=== PATIENT | male | born 1960 | race Asian ===

== ENCOUNTER 2021-05-04 09:13 | Inpatient (IN) | payer MEDICAID, OTHER ==
[~2021-05-04] VITALS: Ht 170.2 cm; Wt 59.3 kg
[2021-05-04] MEDS ORDERED: SODIUM CHLORIDE 0.9% 100 ML ONE ×2 (09:42→16:56)
[2021-05-04] MEDS ORDERED: IOHEXOL 350 MG/ML 100 ML VIAL ONE (09:42)
[2021-05-04] MEDS ORDERED: MAG HYDROX/AL HYDROX/SIMETH 30 ML SUSP UDCUP PO ONE (09:45)
[2021-05-04] MEDS ORDERED: ONDANSETRON HCL 4 MG/2 ML VIAL IVP ONE (09:45)
[2021-05-04] MEDS ORDERED: FAMOTIDINE 10 MG/ML 2 ML VIAL IVP ONE (09:45)
[2021-05-04] MEDS ORDERED: ACETAMINOPHEN 500 MG TABLET PO ONE (09:45)
[2021-05-04 10:23] LABS: BASOPHILS % (AUTO) 0.2 % (0.0-2.0); EOSINOPHILS % (AUTO) 0.2 % (1.0-6.0); HEMATOCRIT 44.8 % (41-53); LYMPHOCYTES # (AUTO) 1.8 K/uL (1.0-4.8); LYMPHOCYTES % (AUTO) 31.4 % (22.0-44.0); MEAN CORPUSCULAR HEMOGLOBIN 30.5 pg (26.0-34.0); MEAN CORPUSCULAR HGB CONC 33.5 G/dL (31.0-37.0); MEAN CORPUSCULAR VOLUME 91 fL (80-100); MONOCYTES # (AUTO) 0.1 K/uL (0.1-1.0); MONOCYTES % (AUTO) 1.8 % (2.0-9.0); NEUTROPHILS # (AUTO) 3.7 K/uL (1.8-7.7); NEUTROPHILS % (AUTO) 66.4 % (40.0-70.0); PLATELET COUNT (AUTO) 312 K/uL (150-450); RED BLOOD CELL COUNT(AUTO) 4.92 MIL/uL (4.50-5.90); RED CELL DISTRIBUTION WIDTH 15.7 % (11.5-14.5)
[2021-05-04 10:34] LABS: CALCIUM, TOTAL 8.7 mg/dL (8.8-10.5); CREATININE 1.35 mg/dL (0.60-1.30); POTASSIUM 4.3 mmol/L (3.5-5.1)
[2021-05-04 10:38] LABS: ALBUMIN 3.1 g/dL (3.4-5.0); BILIRUBIN,TOTAL 0.5 mg/dL (0.1-1.0); TOTAL PROTEIN, SERUM 6.5 g/dL (6.4-8.2)
[2021-05-04 10:41] LABS: INR 0.9 (0.9-1.1); PROTHROMBIN TIME 9.8 SEC (9.4-11.6)
[2021-05-04 10:45] LABS: APPEARANCE,URINE CLEAR (CLEAR); BILIRUBIN,URINE NEGATIVE (NEGATIVE); GLUCOSE, URINE (UA) NEGATIVE (NEGATIVE); KETONES,URINE NEGATIVE (NEGATIVE); LEUKOCYTE ESTERASE ,URINE NEGATIVE (NEGATIVE); NITRATE,URINE NEGATIVE (NEGATIVE); OCCULT BLOOD,URINE NEGATIVE (NEGATIVE); PROTEIN,URINE POS 1+ (NEGATIVE)
[2021-05-04] MEDS ORDERED: PANTOPRAZOLE SODIUM 40 MG/VIAL IVP ONE (11:00)
[2021-05-04 11:05] LABS: BACTERIA,URINE None Seen /HPF (None Seen); RBC,URINE None Seen /HPF (0-2); SQUAMOUS EPITHELIAL CELL,UR None Seen /LPF (None Seen); WBC,URINE None Seen /HPF (0-5)
[2021-05-04] MEDS ORDERED: PANTOPRAZOLE SODIUM 80 MG in SODIUM CHLORIDE 0.9% 100 ML IV SCH ×2 (11:15→14:45)
[2021-05-04] MEDS ORDERED: GABA-1181 PO (12:59)
[2021-05-04] MEDS ORDERED: MELO-107 PO (12:59)
[2021-05-04] MEDS ORDERED: PIPERACILLIN SODIUM/TAZOBACTAM 4.5 GM in DEXTROSE 5%-WATER 100 ML IV ONE (13:00)
[2021-05-04] MEDS ORDERED: FLUCONAZOLE 400 MG/NACL ISOOSM 200 ML IV ONE (13:15)
[2021-05-04] MEDS ORDERED: BUPIVACAINE/EPI/PF 0.5% 30 ML VIAL ONE (13:23)
[2021-05-04] MEDS ORDERED: BUPIVACAINE 0.25%/EPI 1:200,000/PF 10 ML VIAL ONE (13:24)
[2021-05-04 13:27] LABS: COVID AG,FIA SOURCE NASAL SWAB
[2021-05-04] MEDS ORDERED: BUPIVACAINE HCL/PF 0.5% 30 ML VIAL ONE (13:37)
[2021-05-04] MEDS ORDERED: ONDANSETRON HCL 4 MG/2 ML VIAL IVP PRN ×2 (13:45→14:45)
[2021-05-04] MEDS ORDERED: 0.9% SODIUM CHLORIDE 10 ML SYRINGE IVP PRN (13:45)
[2021-05-04] MEDS ORDERED: BUPIVACAINE LIPOSOME/PF 1.3%-13.3MG/ML SUSPENSION 10 ML VIAL INJ ONE ×2 (13:45→14:00)
[2021-05-04] MEDS ORDERED: AMLO-257 PO (14:11)
[2021-05-04] MEDS ORDERED: ATOR20TA86 PO (14:11)
[2021-05-04] MEDS ORDERED: LOSA-30 PO (14:11)
[2021-05-04] MEDS ORDERED: ASPI-1450 PO (14:12)
[2021-05-04] MEDS ORDERED: ALBUMIN HUMAN 25%-12.5GM/50ML 50 ML ONE (14:17)
[2021-05-04] MEDS ORDERED: 0.9% SODIUM CHLORIDE 1000 ML IRRIG SOLUTION BAG IRRIG ONE (14:40)
[2021-05-04] MEDS ORDERED: BISACODYL 10 MG RECTAL RECTAL SUPPOSITORY PR PRN (14:45)
[2021-05-04] MEDS ORDERED: MAGNESIUM HYDROXIDE SUSPENSION 30 ML UDCUP PO PRN (14:45)
[2021-05-04] MEDS ORDERED: HydrALAZINE HCL 20 MG/ML VIAL IVP PRN (14:45)
[2021-05-04] MEDS ORDERED: BUPIVACAINE LIPOSOME/PF 1.3%-13.3MG/ML SUSPENSION 20 ML VIAL INJ ONE (14:45)
[2021-05-04] MEDS ORDERED: ZOLPIDEM TARTRATE 5 MG TABLET PO PRN (14:45)
[2021-05-04] MEDS ORDERED: BUPIVACAINE HCL/PF 0.5% 30 ML VIAL ID ONE (14:45)
[2021-05-04] MEDS ORDERED: SODIUM CHLORIDE 0.45% 0 ML IV ONE (14:50)
[2021-05-04] MEDS ORDERED: SODIUM CHLORIDE 0.9% 1,000 ML ONE (14:50)
[2021-05-04] MEDS ORDERED: PIPERACILLIN/TAZO 3.375 GM/D5W 50 ML IV SCH (15:00)
[2021-05-04] MEDS ORDERED: HYDROmorphone 2 MG/ML VIAL IVP PRN (15:15)
[2021-05-04] MEDS ORDERED: FentaNYL CITRATE PF 100 MCG/2 ML VIAL IVP PRN (15:15)
[2021-05-04] MEDS ORDERED: MEPERIDINE-PF 25 MG/ML VIAL IVP PRN (15:15)
[2021-05-04] MEDS: HEPARIN SODIUM,PORCINE 5,000 UNITS/ML VIAL SQ SCH (16:00)
[2021-05-04 20:00] VITALS: BP 151/78
[2021-05-04] MEDS: PIPERACILLIN/TAZO 3.375 GM/D5W 50 ML IV SCH (20:09)
[2021-05-04] MEDS: DOCUSATE SODIUM 100 MG CAPSULE PO SCH (20:10)
[2021-05-04] MEDS: PANTOPRAZOLE SODIUM 80 MG in SODIUM CHLORIDE 0.9% 100 ML IV SCH (21:22)
[2021-05-05] MEDS: FLUCONAZOLE 400 MG/NACL ISOOSM 200 ML IV SCH ×2 (00:17→13:53)
[2021-05-05] MEDS: HEPARIN SODIUM,PORCINE 5,000 UNITS/ML VIAL SQ SCH ×3 (00:17→17:45)
[2021-05-05 01:46] VITALS: BP 123/80
[2021-05-05] MEDS: PIPERACILLIN/TAZO 3.375 GM/D5W 50 ML IV SCH ×4 (02:56→20:53)
[2021-05-05 04:00] VITALS: BP 128/85
[2021-05-05] MEDS ORDERED: ROCURONIUM BROMIDE 10 MG/ML 5 ML VIAL IVP ONE (06:14)
[2021-05-05] MEDS ORDERED: PROPOFOL 1% 20 ML VIAL IVP ONE (06:14)
[2021-05-05] MEDS ORDERED: MORPHINE SULFATE/PF 0.5 MG/ML 10 ML AMP IVP ONE (06:14)
[2021-05-05] MEDS ORDERED: PHENYLEPHRINE HCL 10 MG/ML VIAL IVP ONE (06:14)
[2021-05-05] MEDS ORDERED: ONDANSETRON HCL 4 MG/2 ML VIAL IVP ONE (06:14)
[2021-05-05] MEDS ORDERED: 0.9% SODIUM CHLORIDE 10 ML VIAL IVP ONE (06:14)
[2021-05-05] MEDS ORDERED: FentaNYL CITRATE PF 100 MCG/2 ML VIAL IVP ONE (06:14)
[2021-05-05] MEDS ORDERED: LIDOCAINE/PF 2% 5 ML VIAL IM ONE (06:14)
[2021-05-05] MEDS ORDERED: DEXAMETHASONE SOD PHOS 4 MG/ML VIAL IVP ONE (06:14)
[2021-05-05] MEDS ORDERED: MIDAZOLAM HCL 2 MG/2 ML VIAL IVP ONE (06:14)
[2021-05-05] MEDS ORDERED: KETOROLAC TROMETHAMINE 60 MG/2 ML VIAL IM ONE (06:14)
[2021-05-05] MEDS ORDERED: SODIUM CHLORIDE 0.9% 0 ML ONE (06:54)
[2021-05-05 07:07] VITALS: BP 125/72
[2021-05-05] MEDS: MORPHINE SULFATE 2 MG/ML SYRINGE IVP PRN (08:27)
[2021-05-05] MEDS: PANTOPRAZOLE SODIUM 80 MG in SODIUM CHLORIDE 0.9% 100 ML IV SCH ×2 (08:30→19:00)
[2021-05-05 08:40] LABS: BASOPHILS % (AUTO) 0.1 % (0.0-2.0); EOSINOPHILS % (AUTO) 0.1 % (1.0-6.0); HEMATOCRIT 36.4 % (41-53); HEMOGLOBIN 12.4 g/dL (13.5-17.5); LYMPHOCYTES # (AUTO) 0.4 K/uL (1.0-4.8); LYMPHOCYTES % (AUTO) 4.3 % (22.0-44.0); MEAN CORPUSCULAR HEMOGLOBIN 30.9 pg (26.0-34.0); MEAN CORPUSCULAR VOLUME 91 fL (80-100); MONOCYTES # (AUTO) 0.1 K/uL (0.1-1.0); MONOCYTES % (AUTO) 1.4 % (2.0-9.0); NEUTROPHILS # (AUTO) 7.8 K/uL (1.8-7.7); PLATELET COUNT (AUTO) 240 K/uL (150-450); RED BLOOD CELL COUNT(AUTO) 4.01 MIL/uL (4.50-5.90); RED CELL DISTRIBUTION WIDTH 15.9 % (11.5-14.5)
[2021-05-05 08:41] LABS: NEUTROPHILS % (AUTO) 94.1 % (40.0-70.0)
[2021-05-05] MEDS: AmLODIPine BESYLATE 5 MG TABLET PO SCH (08:57)
[2021-05-05] MEDS: HYDROCHLOROTHIAZIDE 25 MG TABLET PO SCH (08:57)
[2021-05-05] MEDS: DOCUSATE SODIUM 100 MG CAPSULE PO SCH ×2 (08:57→20:52)
[2021-05-05] MEDS: ATORVASTATIN CALCIUM 20 MG TABLET PO SCH (08:57)
[2021-05-05] MEDS: ASPIRIN 81 MG CHEWABLE TABLET PO SCH (08:57)
[2021-05-05] MEDS: LOSARTAN POTASSIUM 50 MG TABLET PO SCH (08:57)
[2021-05-05] MEDS ORDERED: PANTOPRAZOLE SODIUM 40 MG DR TABLET PO SCH (09:00)
[2021-05-05 09:02] LABS: ALANINE AMINOTRANSFERASE 20 U/L (12-78); ALBUMIN 2.3 g/dL (3.4-5.0); ALKALINE PHOSPHATASE 47 U/L (46-116); ANION GAP 6 mmol/L (8-16); ASPARTATE AMINOTRANSFERASE 24 U/L (15-37); BILIRUBIN,TOTAL 0.5 mg/dL (0.1-1.0); CALCIUM, TOTAL 8.2 mg/dL (8.8-10.5); CARBON DIOXIDE 25 mmol/L (22-29); CHLORIDE 104 mmol/L (98-107); CREATININE 1.19 mg/dL (0.60-1.30); GLOMERULAR FILTR. RATE CALC > 60 mL/min (>60); GLUCOSE,RANDOM 125 mg/dL (70-110); POTASSIUM 4.1 mmol/L (3.5-5.1); SODIUM SERUM 135 mmol/L (136-145); TOTAL PROTEIN, SERUM 5.5 g/dL (6.4-8.2); UREA NITROGEN, BLOOD 37 mg/dL (7-18)
[2021-05-05 10:48] VITALS: BP 143/79
[2021-05-05] MEDS ORDERED: FLUT1AER8 IH (11:35)
[2021-05-05] MEDS ORDERED: UMEC62.5 IH (11:35)
[2021-05-05 14:30] VITALS: BP 123/61
[2021-05-05 20:00] VITALS: BP 124/70
[2021-05-06] VITALS (7 sets, daily range): BP systolic 108–138; BP diastolic 65–81
[2021-05-06] MEDS: HEPARIN SODIUM,PORCINE 5,000 UNITS/ML VIAL SQ SCH ×4 (01:06→23:49)
[2021-05-06] MEDS: FLUCONAZOLE 400 MG/NACL ISOOSM 200 ML IV SCH ×2 (01:07→13:42)
[2021-05-06] MEDS: PIPERACILLIN/TAZO 3.375 GM/D5W 50 ML IV SCH ×4 (02:40→20:27)
[2021-05-06] MEDS: MORPHINE SULFATE 2 MG/ML SYRINGE IVP PRN ×2 (04:48→11:06)
[2021-05-06] MEDS: PANTOPRAZOLE SODIUM 80 MG in SODIUM CHLORIDE 0.9% 100 ML IV SCH ×3 (06:30→23:44)
[2021-05-06] MEDS: AmLODIPine BESYLATE 5 MG TABLET PO SCH (08:23)
[2021-05-06] MEDS: LOSARTAN POTASSIUM 50 MG TABLET PO SCH (08:23)
[2021-05-06] MEDS: ATORVASTATIN CALCIUM 20 MG TABLET PO SCH (08:23)
[2021-05-06] MEDS: HYDROCHLOROTHIAZIDE 25 MG TABLET PO SCH (08:23)
[2021-05-06] MEDS: DOCUSATE SODIUM 100 MG CAPSULE PO SCH ×2 (08:24→20:28)
[2021-05-06] MEDS: ASPIRIN 81 MG CHEWABLE TABLET PO SCH (08:24)
[2021-05-06 08:48] LABS: HEMATOCRIT 34.5 % (41-53); HEMOGLOBIN 11.9 g/dL (13.5-17.5); MEAN CORPUSCULAR HGB CONC 34.6 G/dL (31.0-37.0); MEAN CORPUSCULAR VOLUME 90 fL (80-100); PLATELET COUNT (AUTO) 234 K/uL (150-450); RED BLOOD CELL COUNT(AUTO) 3.85 MIL/uL (4.50-5.90); RED CELL DISTRIBUTION WIDTH 15.7 % (11.5-14.5)
[2021-05-06 08:58] LABS: CALCIUM, TOTAL 8.6 mg/dL (8.8-10.5); CREATININE 1.22 mg/dL (0.60-1.30)
[2021-05-06 09:18] LABS: BAND NEUTROPHILS % (MANUAL) 25 % (0-5); LYMPHOCYTES % (MANUAL) 10 % (22-44); MONOCYTES % (MANUAL) 2 % (2-9); SEGMENTED NEUTROPHILS % 63 % (40-70)
[2021-05-06] MEDS: ACETAMINOPHEN 325 MG TABLET PO PRN (15:09)
[2021-05-06] MEDS: OXYGEN THERAPY IH SCH ×2 (20:34→20:36)
[2021-05-07] MEDS: FLUCONAZOLE 400 MG/NACL ISOOSM 200 ML IV SCH ×2 (00:38→13:17)
[2021-05-07] MEDS: PIPERACILLIN/TAZO 3.375 GM/D5W 50 ML IV SCH ×4 (02:43→19:39)
[2021-05-07 03:15] VITALS: BP 107/69
[2021-05-07] MEDS: ACETAMINOPHEN 325 MG TABLET PO PRN (03:18)
[2021-05-07 07:20] LABS: HEMATOCRIT 38.7 % (41-53); HEMOGLOBIN 13.3 g/dL (13.5-17.5); MEAN CORPUSCULAR HEMOGLOBIN 31.1 pg (26.0-34.0); MEAN CORPUSCULAR HGB CONC 34.4 G/dL (31.0-37.0); MEAN CORPUSCULAR VOLUME 91 fL (80-100); PLATELET COUNT (AUTO) 255 K/uL (150-450); RED BLOOD CELL COUNT(AUTO) 4.27 MIL/uL (4.50-5.90); RED CELL DISTRIBUTION WIDTH 15.5 % (11.5-14.5)
[2021-05-07 07:29] LABS: CALCIUM, TOTAL 8.5 mg/dL (8.8-10.5); CREATININE 1.28 mg/dL (0.60-1.30); POTASSIUM 3.9 mmol/L (3.5-5.1)
[2021-05-07 08:23] LABS: BAND NEUTROPHILS % (MANUAL) 20 % (0-5); LYMPHOCYTES % (MANUAL) 11 % (22-44); METAMYELOCYTES % 1 % (0-0); MONOCYTES % (MANUAL) 1 % (2-9); SEGMENTED NEUTROPHILS % 67 % (40-70)
[2021-05-07] MEDS: AmLODIPine BESYLATE 5 MG TABLET PO SCH (08:28)
[2021-05-07] MEDS: ASPIRIN 81 MG CHEWABLE TABLET PO SCH (08:28)
[2021-05-07] MEDS: HYDROCHLOROTHIAZIDE 25 MG TABLET PO SCH (08:28)
[2021-05-07] MEDS: ATORVASTATIN CALCIUM 20 MG TABLET PO SCH (08:29)
[2021-05-07] MEDS: LOSARTAN POTASSIUM 50 MG TABLET PO SCH (08:29)
[2021-05-07] MEDS: HEPARIN SODIUM,PORCINE 5,000 UNITS/ML VIAL SQ SCH ×2 (08:29→16:32)
[2021-05-07] MEDS: OXYGEN THERAPY IH SCH ×2 (08:33→19:38)
[2021-05-07] MEDS: DOCUSATE SODIUM 100 MG CAPSULE PO SCH ×2 (09:00→20:12)
[2021-05-07 09:32] VITALS: BP 125/72
[2021-05-07] MEDS: PANTOPRAZOLE SODIUM 80 MG in SODIUM CHLORIDE 0.9% 100 ML IV SCH ×2 (10:20→19:35)
[2021-05-07 13:29] VITALS: BP 128/80
[2021-05-07 15:06] LABS: GLUCOMETER DEV NAME(LOC) 5S.1B; GLUCOSE,POINT OF CARE 69 MG/DL (70-110)
[2021-05-07 19:05] VITALS: BP 95/75
[2021-05-07 23:16] VITALS: BP 101/79
[2021-05-08] MEDS: HEPARIN SODIUM,PORCINE 5,000 UNITS/ML VIAL SQ SCH ×3 (00:05→17:54)
[2021-05-08] MEDS: FLUCONAZOLE 400 MG/NACL ISOOSM 200 ML IV SCH ×2 (00:05→11:51)
[2021-05-08] MEDS: PIPERACILLIN/TAZO 3.375 GM/D5W 50 ML IV SCH ×4 (02:24→20:37)
[2021-05-08 04:48] VITALS: BP 110/67
[2021-05-08] MEDS: PANTOPRAZOLE SODIUM 80 MG in SODIUM CHLORIDE 0.9% 100 ML IV SCH ×2 (05:02→16:34)
[2021-05-08 08:58] VITALS: BP 113/72
[2021-05-08] MEDS: ATORVASTATIN CALCIUM 20 MG TABLET PO SCH (09:46)
[2021-05-08] MEDS: ASPIRIN 81 MG CHEWABLE TABLET PO SCH (09:46)
[2021-05-08] MEDS: AmLODIPine BESYLATE 5 MG TABLET PO SCH (09:46)
[2021-05-08] MEDS: HYDROCHLOROTHIAZIDE 25 MG TABLET PO SCH (09:46)
[2021-05-08] MEDS: LOSARTAN POTASSIUM 50 MG TABLET PO SCH (09:46)
[2021-05-08] MEDS: DOCUSATE SODIUM 100 MG CAPSULE PO SCH ×2 (09:46→20:36)
[2021-05-08] MEDS: OXYGEN THERAPY IH SCH ×2 (11:00→20:00)
[2021-05-08 12:27] VITALS: BP 110/78
[2021-05-08] MEDS ORDERED: LACTULOSE 20 GM/30 ML SOLUTION UDCUP PO PRN (17:00)
[2021-05-08 19:10] VITALS: BP 95/112
[2021-05-08] MEDS: HYDROCODONE/ACETAMINOPHEN 5-325 MG TABLET PO PRN (20:35)
[2021-05-09 00:22] VITALS: BP 118/65
[2021-05-09] MEDS: FLUCONAZOLE 400 MG/NACL ISOOSM 200 ML IV SCH ×2 (00:35→11:54)
[2021-05-09] MEDS: HEPARIN SODIUM,PORCINE 5,000 UNITS/ML VIAL SQ SCH ×3 (00:36→16:33)
[2021-05-09] MEDS: PANTOPRAZOLE SODIUM 80 MG in SODIUM CHLORIDE 0.9% 100 ML IV SCH ×3 (00:39→21:45)
[2021-05-09] MEDS: PIPERACILLIN/TAZO 3.375 GM/D5W 50 ML IV SCH ×5 (01:49→20:43)
[2021-05-09 04:00] VITALS: BP 114/71
[2021-05-09 06:17] LABS: BASOPHILS % (AUTO) 0.2 % (0.0-2.0); EOSINOPHILS % (AUTO) 0.5 % (1.0-6.0); HEMATOCRIT 37.2 % (41-53); HEMOGLOBIN 12.9 g/dL (13.5-17.5); LYMPHOCYTES # (AUTO) 0.8 K/uL (1.0-4.8); LYMPHOCYTES % (AUTO) 9.9 % (22.0-44.0); MEAN CORPUSCULAR HEMOGLOBIN 30.9 pg (26.0-34.0); MEAN CORPUSCULAR HGB CONC 34.8 G/dL (31.0-37.0); MEAN CORPUSCULAR VOLUME 89 fL (80-100); MONOCYTES # (AUTO) 0.2 K/uL (0.1-1.0); MONOCYTES % (AUTO) 2.9 % (2.0-9.0); NEUTROPHILS # (AUTO) 6.6 K/uL (1.8-7.7); PLATELET COUNT (AUTO) 333 K/uL (150-450); RED BLOOD CELL COUNT(AUTO) 4.18 MIL/uL (4.50-5.90); RED CELL DISTRIBUTION WIDTH 15.6 % (11.5-14.5)
[2021-05-09 06:20] LABS: NEUTROPHILS % (AUTO) 86.5 % (40.0-70.0)
[2021-05-09 06:24] LABS: ANION GAP 13 mmol/L (8-16); CALCIUM, TOTAL 8.4 mg/dL (8.8-10.5); CARBON DIOXIDE 23 mmol/L (22-29); CHLORIDE 95 mmol/L (98-107); CREATININE 1.03 mg/dL (0.60-1.30); GLOMERULAR FILTR. RATE CALC > 60 mL/min (>60); GLUCOSE,RANDOM 114 mg/dL (70-110); POTASSIUM 3.6 mmol/L (3.5-5.1); SODIUM SERUM 131 mmol/L (136-145); UREA NITROGEN, BLOOD 25 mg/dL (7-18)
[2021-05-09] MEDS: OXYGEN THERAPY IH SCH ×2 (08:00→20:05)
[2021-05-09 08:13] VITALS: BP_SYST 105; BP_SYST 129; BP_DIAS 65; BP_DIAS 69
[2021-05-09] MEDS: ACETAMINOPHEN 325 MG TABLET PO PRN (08:40)
[2021-05-09] MEDS: ASPIRIN 81 MG CHEWABLE TABLET PO SCH (08:41)
[2021-05-09] MEDS: LOSARTAN POTASSIUM 50 MG TABLET PO SCH (08:41)
[2021-05-09] MEDS: HYDROCHLOROTHIAZIDE 25 MG TABLET PO SCH (08:41)
[2021-05-09] MEDS: AmLODIPine BESYLATE 5 MG TABLET PO SCH (08:41)
[2021-05-09] MEDS: DOCUSATE SODIUM 100 MG CAPSULE PO SCH ×2 (08:41→20:43)
[2021-05-09] MEDS: ATORVASTATIN CALCIUM 20 MG TABLET PO SCH (08:45)
[2021-05-09 12:21] VITALS: BP 99/76
[2021-05-09] MEDS ORDERED: SODIUM CHLORIDE 0.9% 1,000 ML ONE (12:49)
[2021-05-09] MEDS ORDERED: SODIUM CHLORIDE 0.9% 1,000 ML IV SCH (14:30)
[2021-05-09] MEDS: SODIUM CHLORIDE 0.9% 1,000 ML IV SCH (14:54)
[2021-05-09 16:07] VITALS: BP 103/64
[2021-05-09 20:16] VITALS: BP 171/73
[2021-05-10] VITALS: BP 113/66
[2021-05-10] MEDS: HEPARIN SODIUM,PORCINE 5,000 UNITS/ML VIAL SQ SCH ×3 (00:18→17:13)
[2021-05-10] MEDS: FLUCONAZOLE 400 MG/NACL ISOOSM 200 ML IV SCH ×2 (00:18→11:39)
[2021-05-10 01:22] LABS: APPEARANCE,URINE CLEAR (CLEAR); BILIRUBIN,URINE NEGATIVE (NEGATIVE); GLUCOSE, URINE (UA) NEGATIVE (NEGATIVE); KETONES,URINE >=80 mg/dL (NEGATIVE); LEUKOCYTE ESTERASE ,URINE NEGATIVE (NEGATIVE); NITRATE,URINE NEGATIVE (NEGATIVE); OCCULT BLOOD,URINE SMALL (NEGATIVE); PROTEIN,URINE POS 1+ (NEGATIVE)
[2021-05-10] MEDS: PIPERACILLIN/TAZO 3.375 GM/D5W 50 ML IV SCH ×3 (01:38→15:59)
[2021-05-10 01:41] LABS: BACTERIA,URINE None Seen /HPF (None Seen); RBC,URINE 0-2 /HPF (0-2); WBC,URINE None Seen /HPF (0-5)
[2021-05-10] MEDS: SODIUM CHLORIDE 0.9% 1,000 ML IV SCH ×2 (04:00→16:21)
[2021-05-10 04:07] VITALS: BP 118/65
[2021-05-10] MEDS: HYDROCODONE/ACETAMINOPHEN 5-325 MG TABLET PO PRN ×3 (05:39→17:42)
[2021-05-10 07:15] LABS: ANION GAP 12 mmol/L (8-16); CALCIUM, TOTAL 8.2 mg/dL (8.8-10.5); CARBON DIOXIDE 22 mmol/L (22-29); CHLORIDE 97 mmol/L (98-107); CREATININE 1.02 mg/dL (0.60-1.30); GLOMERULAR FILTR. RATE CALC > 60 mL/min (>60); GLUCOSE,RANDOM 113 mg/dL (70-110); POTASSIUM 3.2 mmol/L (3.5-5.1); SODIUM SERUM 131 mmol/L (136-145); UREA NITROGEN, BLOOD 24 mg/dL (7-18)
[2021-05-10] MEDS: OXYGEN THERAPY IH SCH (08:00)
[2021-05-10 08:53] VITALS: BP 114/72
[2021-05-10] MEDS: ASPIRIN 81 MG CHEWABLE TABLET PO SCH (10:12)
[2021-05-10] MEDS: DOCUSATE SODIUM 100 MG CAPSULE PO SCH (10:12)
[2021-05-10] MEDS: LOSARTAN POTASSIUM 50 MG TABLET PO SCH (10:13)
[2021-05-10] MEDS: HYDROCHLOROTHIAZIDE 25 MG TABLET PO SCH (10:13)
[2021-05-10] MEDS: ATORVASTATIN CALCIUM 20 MG TABLET PO SCH (10:13)
[2021-05-10] MEDS: AmLODIPine BESYLATE 5 MG TABLET PO SCH (10:13)
[2021-05-10] MEDS: PANTOPRAZOLE SODIUM 80 MG in SODIUM CHLORIDE 0.9% 100 ML IV SCH ×2 (10:24→10:46)
[2021-05-10] MEDS ORDERED: AMOX1TAB15 PO (10:49)
[2021-05-10] MEDS ORDERED: DOCU100C33 PO (10:49)
[2021-05-10 12:59] VITALS: BP 118/71
[2021-05-10] MEDS ORDERED: POTASSIUM CHLORIDE 20 MEQ ER TABLET PO ONE ×2 (13:15→13:30)
[2021-05-10 17:24] VITALS: BP 124/70
[2021-05-11] MEDS ORDERED: PANT-31 PO (14:16)
== END 2021-05-10 18:00 | disposition home or self-care (01) | DRG 220 ==
LOC: EMS 09:18 → 5N 13:31
PROVIDERS: ADMIT Internal Medicine; ATTEND Internal Medicine
PROC: 0W9G0ZZ Drainage of Peritoneal Cavity, Open Approach (ICD-10-PCS; 2021-05-04)
PROC: 0DU607Z Supplement Stomach with Autologous Tissue Substitute, Open Approach (ICD-10-PCS; principal; 2021-05-04 14:00)
DX: K25.5 Chronic or unspecified gastric ulcer with perforation (principal); N17.9 Acute kidney failure, unspecified; I10 Essential (primary) hypertension; E78.5 Hyperlipidemia, unspecified; F17.210 Nicotine dependence, cigarettes, uncomplicated; Z20.822 Contact with and (suspected) exposure to COVID-19; Z79.899 Other long term (current) drug therapy; Z79.82 Long term (current) use of aspirin
CPT/HCPCS: 71045; 74018; 74177; 80048; 80053; 81001; 82271; 82962; 83690; 83880; 84484; 85025; 85610; 85730; 86850; 86900; 86901; 87040; 87070; 87081; 93005; 97116; 97163; 97530; 99291; C9113; C9290; J1100; J1450; J1644; J1885; J2250; J2270; J2274; J2370; J2405; J2543; J2704; J3010; J3490; J7030; J7050; J7060; P9047; Q9967; 36415-L1; 36415-TC; Z7610

== ENCOUNTER 2022-12-20 10:10 | Inpatient (IN) | payer OTHER ==
[~2022-12-20] VITALS: Ht 157.5 cm; Wt 63.0 kg
[~2022-12-20 10:10] MED LIST: AMLO-257 PO; AMOX1TAB15 PO; ASPI-1450 PO; ATOR20TA PO; DOCU100C33 PO; FLUT1AER8 IH; GABA-1181 PO; LOSA-30 PO; MELO-381 PO; PANT-31 PO; UMEC62.5 IH
[2022-12-20] MEDS ORDERED: MORPHINE SULFATE 2 MG/ML SYRINGE IVP ONE (11:00)
[2022-12-20] MEDS ORDERED: SODIUM CHLORIDE 0.9% 1,000 ML IV ONE ×2 (11:00→13:00)
[2022-12-20 11:13] LABS: BASOPHILS % (AUTO) 0.5 % (0.0-2.0); EOSINOPHILS % (AUTO) 0.7 % (1.0-6.0); HEMATOCRIT 29.7 % (41-53); HEMOGLOBIN 9.9 g/dL (13.5-17.5); LYMPHOCYTES # (AUTO) 1.5 K/uL (1.0-4.8); LYMPHOCYTES % (AUTO) 11.4 % (22.0-44.0); MEAN CORPUSCULAR HEMOGLOBIN 28.9 pg (26.0-34.0); MEAN CORPUSCULAR HGB CONC 33.2 G/dL (31.0-37.0); MEAN CORPUSCULAR VOLUME 87 fL (80-100); MONOCYTES # (AUTO) 0.7 K/uL (0.1-1.0); MONOCYTES % (AUTO) 5.6 % (2.0-9.0); NEUTROPHILS # (AUTO) 10.5 K/uL (1.8-7.7); NEUTROPHILS % (AUTO) 81.8 % (40.0-70.0); RED BLOOD CELL COUNT(AUTO) 3.42 MIL/uL (4.50-5.90); RED CELL DISTRIBUTION WIDTH 15.2 % (11.5-14.5); WHITE BLOOD COUNT (AUTO) 12.9 K/uL (4.5-11.0)
[2022-12-20 11:20] LABS: CALCIUM, TOTAL 9.2 mg/dL (8.8-10.5); CREATININE 2.19 mg/dL (0.60-1.30); POTASSIUM 3.6 mmol/L (3.5-5.1)
[2022-12-20 11:23] LABS: PLATELET COUNT (AUTO) 827 K/uL (150-450)
[2022-12-20 11:26] LABS: ALBUMIN 2.6 g/dL (3.4-5.0); BILIRUBIN,TOTAL 0.6 mg/dL (0.1-1.0); TOTAL PROTEIN, SERUM 8.5 g/dL (6.4-8.2)
[2022-12-20 11:28] LABS: TROPONIN I-HIGH SENSITIVITY 6 ng/L (<76)
[2022-12-20 11:58] LABS: APPEARANCE,URINE CLEAR (CLEAR); BILIRUBIN,URINE NEGATIVE (NEGATIVE); COLOR,URINE LIGHT YELLOW (YELLOW); GLUCOSE, URINE (UA) NEGATIVE (NEGATIVE); KETONES,URINE NEGATIVE (NEGATIVE); LEUKOCYTE ESTERASE ,URINE NEGATIVE (NEGATIVE); NITRATE,URINE NEGATIVE (NEGATIVE); OCCULT BLOOD,URINE NEGATIVE (NEGATIVE); PH,URINE 6.5 (5.0-8.0); PROTEIN,URINE NEGATIVE (NEGATIVE); SPECIFIC GRAVITIY, URINE 1.008 (1.003-1.030); UROBILINOGEN,URINE <=1.0 mg/dL (<=1.0)
[2022-12-20 13:31] LABS: COVID AG,FIA SOURCE NASAL SWAB
[2022-12-20 14:04] LABS: SARS-COV2 (COVID) ANTIGEN,FIA Negative (Negative)
[2022-12-20] MEDS ORDERED: ONDANSETRON HCL 4 MG/2 ML VIAL IVP PRN (18:45)
[2022-12-20 19:31] LABS: LACTIC ACID 1.3 mmol/L (0.4-2.0)
[2022-12-20] MEDS: DOCUSATE SODIUM 100 MG CAPSULE PO SCH (21:00)
[2022-12-20 21:45] VITALS: BP 127/69; PULSE 94; RESP 20; TEMP 98.2
[2022-12-21] VITALS (8 sets, daily range): BP systolic 97–110; BP diastolic 58–72; PULSE 70–93; RESP 18–20; TEMP 97.8–100.4
[2022-12-21] MEDS: ACETAMINOPHEN 325 MG TABLET PO PRN ×3 (00:19→16:58)
[2022-12-21] MEDS: PIPERACILLIN SODIUM/TAZOBACTAM 2.25 GM in DEXTROSE 5%-WATER 50 ML IV SCH ×4 (00:19→18:40)
[2022-12-21] MEDS: HEPARIN SODIUM,PORCINE 5,000 UNITS/ML VIAL SQ SCH ×3 (00:19→16:58)
[2022-12-21] MEDS: RINGERS SOLUTION,LACTATED 1,000 ML IV SCH ×2 (06:38→20:59)
[2022-12-21] MEDS: DOCUSATE SODIUM 100 MG CAPSULE PO SCH ×2 (08:32→20:59)
[2022-12-21] MEDS ORDERED: SODIUM CHLORIDE 0.9% 250 ML IV ONE (12:11)
[2022-12-21] MEDS ORDERED: OMEP40CA21 PO (18:26)
[2022-12-21] MEDS ORDERED: ASPI-1444 PO (18:26)
[2022-12-21] MEDS ORDERED: ATOR40TA71 PO (18:26)
[2022-12-21] MEDS ORDERED: FERR325T23 PO (18:26)
[2022-12-21] MEDS ORDERED: PLEC3TAB2 PO (18:26)
[2022-12-21] MEDS ORDERED: VIBE75TA PO (18:26)
[2022-12-21] MEDS ORDERED: AMLO10TA55 PO (18:26)
[2022-12-21] MEDS ORDERED: ACET-66 PO (18:26)
[2022-12-22] MEDS: PIPERACILLIN SODIUM/TAZOBACTAM 2.25 GM in DEXTROSE 5%-WATER 50 ML IV SCH ×2 (00:09→05:18)
[2022-12-22] MEDS: HEPARIN SODIUM,PORCINE 5,000 UNITS/ML VIAL SQ SCH ×3 (00:09→15:55)
[2022-12-22] MEDS: ACETAMINOPHEN 325 MG TABLET PO PRN (01:07)
[2022-12-22 04:45] VITALS: BP 114/66; PULSE 70; RESP 18; TEMP 98.6
[2022-12-22 07:11] LABS: BASOPHILS % (AUTO) 0.6 % (0.0-2.0); HEMATOCRIT 24.5 % (41-53); HEMOGLOBIN 8.3 g/dL (13.5-17.5); LYMPHOCYTES # (AUTO) 1.5 K/uL (1.0-4.8); LYMPHOCYTES % (AUTO) 13.6 % (22.0-44.0); MEAN CORPUSCULAR HEMOGLOBIN 29.5 pg (26.0-34.0); MEAN CORPUSCULAR HGB CONC 33.9 G/dL (31.0-37.0); MEAN CORPUSCULAR VOLUME 87 fL (80-100); MONOCYTES # (AUTO) 0.7 K/uL (0.1-1.0); MONOCYTES % (AUTO) 6.9 % (2.0-9.0); NEUTROPHILS # (AUTO) 8.2 K/uL (1.8-7.7); NEUTROPHILS % (AUTO) 76.9 % (40.0-70.0); PLATELET COUNT (AUTO) 679 K/uL (150-450); RED BLOOD CELL COUNT(AUTO) 2.82 MIL/uL (4.50-5.90); WHITE BLOOD COUNT (AUTO) 10.7 K/uL (4.5-11.0)
[2022-12-22 07:22] LABS: ALBUMIN 1.8 g/dL (3.4-5.0); BILIRUBIN,TOTAL 0.6 mg/dL (0.1-1.0); CALCIUM, TOTAL 8.4 mg/dL (8.8-10.5); CREATININE 1.35 mg/dL (0.60-1.30); POTASSIUM 4.1 mmol/L (3.5-5.1); TOTAL PROTEIN, SERUM 6.8 g/dL (6.4-8.2)
[2022-12-22] MEDS: DOCUSATE SODIUM 100 MG CAPSULE PO SCH ×2 (07:57→20:48)
[2022-12-22 08:00] VITALS: BP 102/61; PULSE 69; RESP 18; TEMP 97.8
[2022-12-22] MEDS: RINGERS SOLUTION,LACTATED 1,000 ML IV SCH ×2 (08:30→14:21)
[2022-12-22 10:42] LABS: INR 1.1 (0.9-1.1); PROTHROMBIN TIME 11.8 SEC (9.4-11.6)
[2022-12-22] MEDS: PIPERACILLIN/TAZO 3.375 GM/D5W 50 ML IV SCH ×3 (12:10→23:03)
[2022-12-22] MEDS ORDERED: LEVOFLOXACIN 750 MG/D5% WATER 150 ML IV SCH (16:00)
[2022-12-22] MEDS ORDERED: *CLINICAL-LEVOFLOXACIN IVPB DOSING CLINICAL ONE (16:00)
[2022-12-22 16:03] VITALS: BP 111/63; PULSE 71; RESP 18; TEMP 98.8
[2022-12-22 17:25] LABS: INFLUENZA TYPE A NEGATIVE FOR TYPE A (NEGATIVE); INFLUENZA TYPE B NEGATIVE FOR TYPE B (NEGATIVE)
[2022-12-22 19:51] VITALS: BP 114/65; PULSE 79; RESP 18; TEMP 99
[2022-12-23] MEDS: HEPARIN SODIUM,PORCINE 5,000 UNITS/ML VIAL SQ SCH ×4 (00:01→23:53)
[2022-12-23 00:02] VITALS: TEMP 99.3
[2022-12-23 03:38] VITALS: BP 120/62; PULSE 79; RESP 18; TEMP 99.3
[2022-12-23] MEDS: PIPERACILLIN/TAZO 3.375 GM/D5W 50 ML IV SCH ×4 (05:03→22:52)
[2022-12-23 07:17] LABS: BASOPHILS % (AUTO) 0.7 % (0.0-2.0); EOSINOPHILS % (AUTO) 1.9 % (1.0-6.0); HEMATOCRIT 24.3 % (41-53); HEMOGLOBIN 8.3 g/dL (13.5-17.5); LYMPHOCYTES # (AUTO) 1.2 K/uL (1.0-4.8); LYMPHOCYTES % (AUTO) 12.9 % (22.0-44.0); MEAN CORPUSCULAR HEMOGLOBIN 29.5 pg (26.0-34.0); MEAN CORPUSCULAR HGB CONC 34.1 G/dL (31.0-37.0); MEAN CORPUSCULAR VOLUME 87 fL (80-100); MONOCYTES # (AUTO) 0.7 K/uL (0.1-1.0); MONOCYTES % (AUTO) 6.9 % (2.0-9.0); NEUTROPHILS # (AUTO) 7.5 K/uL (1.8-7.7); NEUTROPHILS % (AUTO) 77.6 % (40.0-70.0); PLATELET COUNT (AUTO) 670 K/uL (150-450); RED CELL DISTRIBUTION WIDTH 15.1 % (11.5-14.5); WHITE BLOOD COUNT (AUTO) 9.7 K/uL (4.5-11.0)
[2022-12-23 07:28] LABS: CALCIUM, TOTAL 8.2 mg/dL (8.8-10.5); CREATININE 1.26 mg/dL (0.60-1.30); POTASSIUM 3.9 mmol/L (3.5-5.1)
[2022-12-23 08:05] VITALS: BP_SYST 116; BP_SYST 96; BP_DIAS 20; BP_DIAS 67; PULSE 70; RESP 20; TEMP 98.6
[2022-12-23] MEDS: DOCUSATE SODIUM 100 MG CAPSULE PO SCH ×2 (08:50→20:11)
[2022-12-23] MEDS: RINGERS SOLUTION,LACTATED 1,000 ML IV SCH (12:23)
[2022-12-23 15:34] VITALS: BP 119/69; PULSE 72; RESP 20; TEMP 98.7
[2022-12-23 19:35] VITALS: BP 119/67; PULSE 82; RESP 19; TEMP 99.8
[2022-12-23 19:36] VITALS: BP 119/67; PULSE 82; RESP 19; TEMP 99.8
[2022-12-23] MEDS: ACETAMINOPHEN 325 MG TABLET PO PRN (20:11)
[2022-12-24 03:32] VITALS: BP 117/68; PULSE 68; RESP 19; TEMP 98.5
[2022-12-24] MEDS: RINGERS SOLUTION,LACTATED 1,000 ML IV SCH (04:22)
[2022-12-24] MEDS: PIPERACILLIN/TAZO 3.375 GM/D5W 50 ML IV SCH ×4 (04:55→23:42)
[2022-12-24 07:38] LABS: ANION GAP 11 mmol/L (8-16); CALCIUM, TOTAL 8.7 mg/dL (8.8-10.5); CARBON DIOXIDE 22 mmol/L (22-29); CHLORIDE 99 mmol/L (98-107); CREATININE 1.09 mg/dL (0.60-1.30); GLOMERULAR FILTR. RATE CALC > 60 mL/min (>60); GLUCOSE,RANDOM 106 mg/dL (70-110); POTASSIUM 3.9 mmol/L (3.5-5.1); SODIUM SERUM 132 mmol/L (136-145); UREA NITROGEN, BLOOD 12 mg/dL (7-18)
[2022-12-24 08:20] VITALS: BP 111/62; PULSE 76; RESP 20; TEMP 97.8
[2022-12-24] MEDS: LEVOFLOXACIN 750 MG/D5% WATER 150 ML IV SCH (08:46)
[2022-12-24] MEDS: DOCUSATE SODIUM 100 MG CAPSULE PO SCH ×2 (08:47→21:01)
[2022-12-24] MEDS: HEPARIN SODIUM,PORCINE 5,000 UNITS/ML VIAL SQ SCH ×3 (08:47→23:43)
[2022-12-24] MEDS ORDERED: GADOTERATE MEGLUMINE 10 MMOL/20 ML VIAL IVP ONE (09:40)
[2022-12-24 19:32] VITALS: BP 105/65; PULSE 78; RESP 18; TEMP 97.9
[2022-12-25 03:46] VITALS: BP 119/71; PULSE 74; RESP 20; TEMP 97.7
[2022-12-25] MEDS: PIPERACILLIN/TAZO 3.375 GM/D5W 50 ML IV SCH ×4 (04:24→23:00)
[2022-12-25] MEDS: RINGERS SOLUTION,LACTATED 1,000 ML IV SCH (04:25)
[2022-12-25] MEDS: HEPARIN SODIUM,PORCINE 5,000 UNITS/ML VIAL SQ SCH ×3 (08:00→23:18)
[2022-12-25] MEDS: DOCUSATE SODIUM 100 MG CAPSULE PO SCH ×2 (08:42→19:53)
[2022-12-25] MEDS: LEVOFLOXACIN 750 MG/D5% WATER 150 ML IV SCH (08:42)
[2022-12-25 19:49] VITALS: BP 119/73; PULSE 78; RESP 20; TEMP 98.5
[2022-12-26] MEDS: RINGERS SOLUTION,LACTATED 1,000 ML IV SCH ×2 (02:14→22:50)
[2022-12-26 03:50] VITALS: BP 115/67; PULSE 80; RESP 18; TEMP 98.9
[2022-12-26] MEDS: PIPERACILLIN/TAZO 3.375 GM/D5W 50 ML IV SCH ×4 (04:09→22:49)
[2022-12-26 07:30] VITALS: BP 115/66; PULSE 78; RESP 18; TEMP 97.8
[2022-12-26] MEDS: LEVOFLOXACIN 750 MG/D5% WATER 150 ML IV SCH (07:52)
[2022-12-26] MEDS: HEPARIN SODIUM,PORCINE 5,000 UNITS/ML VIAL SQ SCH ×3 (07:52→23:26)
[2022-12-26] MEDS: DOCUSATE SODIUM 100 MG CAPSULE PO SCH ×2 (07:57→20:11)
[2022-12-26] MEDS ORDERED: LIDOCAINE/PF 1% 5 ML VIAL ONE (11:16)
[2022-12-26] MEDS ORDERED: FLUMAZENIL 0.1 MG/ML 5 ML VIAL IVP ONE (12:46)
[2022-12-26] MEDS ORDERED: MIDAZOLAM HCL 2 MG/2 ML VIAL ONE (12:46)
[2022-12-26] MEDS ORDERED: NALOXONE HCL 0.4 MG/ML VIAL ONE (12:46)
[2022-12-26] MEDS ORDERED: FentaNYL CITRATE PF 100 MCG/2 ML VIAL ONE (12:46)
[2022-12-26] MEDS ORDERED: GELATIN SPONGE,ABSORBABLE 12-7 MM TP ONE ×2 (13:40→15:45)
[2022-12-26] MEDS ORDERED: MIDAZOLAM HCL 2 MG/2 ML VIAL IVP ONE ×2 (15:00)
[2022-12-26] MEDS ORDERED: FentaNYL CITRATE PF 100 MCG/2 ML VIAL IVP ONE ×2 (15:00)
[2022-12-26] MEDS ORDERED: MORPHINE SULFATE 2 MG/ML SYRINGE IVP PRN (15:30)
[2022-12-26 16:21] VITALS: BP 121/74; PULSE 84; RESP 18; TEMP 97.6
[2022-12-26 20:00] VITALS: BP 127/79; PULSE 90; RESP 18; TEMP 97.2
[2022-12-27] VITALS: BP 122/73; PULSE 87; RESP 18; TEMP 97.8
[2022-12-27 04:03] VITALS: BP 118/68; PULSE 86; RESP 18; TEMP 98
[2022-12-27] MEDS: PIPERACILLIN/TAZO 3.375 GM/D5W 50 ML IV SCH ×4 (05:09→23:36)
[2022-12-27] MEDS: HEPARIN SODIUM,PORCINE 5,000 UNITS/ML VIAL SQ SCH ×3 (08:36→23:36)
[2022-12-27] MEDS: DOCUSATE SODIUM 100 MG CAPSULE PO SCH ×2 (08:36→21:52)
[2022-12-27] MEDS: LEVOFLOXACIN 750 MG/D5% WATER 150 ML IV SCH (08:39)
[2022-12-27 08:49] VITALS: BP 113/68; PULSE 81; RESP 19; TEMP 99.8
[2022-12-27 09:47] VITALS: BP 114/73; PULSE 90; RESP 20
[2022-12-27] MEDS: DiphenhydrAMINE HCL 25 MG CAPSULE PO SCH ×2 (12:08→21:52)
[2022-12-27] MEDS: PredniSONE 20 MG TABLET PO SCH (12:08)
[2022-12-27] MEDS: FAMOTIDINE 20 MG TABLET PO SCH (12:08)
[2022-12-27 16:55] VITALS: BP 118/69; PULSE 76; RESP 19; TEMP 98
[2022-12-27 20:00] VITALS: BP 110/67; PULSE 74; RESP 18; TEMP 97.7
[2022-12-27] MEDS: RINGERS SOLUTION,LACTATED 1,000 ML IV SCH (21:56)
[2022-12-28 04:54] VITALS: BP 123/73; PULSE 64; RESP 18; TEMP 97.7
[2022-12-28] MEDS: PIPERACILLIN/TAZO 3.375 GM/D5W 50 ML IV SCH (05:00)
[2022-12-28 06:13] LABS: BASOPHILS % (AUTO) 0.2 % (0.0-2.0); EOSINOPHILS % (AUTO) 1.2 % (1.0-6.0); HEMATOCRIT 27.7 % (41-53); HEMOGLOBIN 9.2 g/dL (13.5-17.5); LYMPHOCYTES # (AUTO) 1.3 K/uL (1.0-4.8); LYMPHOCYTES % (AUTO) 16.1 % (22.0-44.0); MEAN CORPUSCULAR HEMOGLOBIN 28.7 pg (26.0-34.0); MEAN CORPUSCULAR HGB CONC 33.3 G/dL (31.0-37.0); MEAN CORPUSCULAR VOLUME 86 fL (80-100); MONOCYTES # (AUTO) 0.5 K/uL (0.1-1.0); MONOCYTES % (AUTO) 6.1 % (2.0-9.0); NEUTROPHILS # (AUTO) 6.3 K/uL (1.8-7.7); NEUTROPHILS % (AUTO) 76.4 % (40.0-70.0); PLATELET COUNT (AUTO) 748 K/uL (150-450); RED BLOOD CELL COUNT(AUTO) 3.21 MIL/uL (4.50-5.90); RED CELL DISTRIBUTION WIDTH 15.4 % (11.5-14.5); WHITE BLOOD COUNT (AUTO) 8.3 K/uL (4.5-11.0)
[2022-12-28 06:51] LABS: ANION GAP 9 mmol/L (8-16); CALCIUM, TOTAL 8.9 mg/dL (8.8-10.5); CARBON DIOXIDE 24 mmol/L (22-29); CHLORIDE 99 mmol/L (98-107); GLOMERULAR FILTR. RATE CALC > 60 mL/min (>60); GLUCOSE,RANDOM 133 mg/dL (70-110); POTASSIUM 3.8 mmol/L (3.5-5.1); SODIUM SERUM 132 mmol/L (136-145); UREA NITROGEN, BLOOD 16 mg/dL (7-18)
[2022-12-28] MEDS: PredniSONE 20 MG TABLET PO SCH (08:24)
[2022-12-28] MEDS: DiphenhydrAMINE HCL 25 MG CAPSULE PO SCH ×2 (08:24→19:47)
[2022-12-28] MEDS: DOCUSATE SODIUM 100 MG CAPSULE PO SCH ×2 (08:25→19:47)
[2022-12-28] MEDS: FAMOTIDINE 20 MG TABLET PO SCH (08:25)
[2022-12-28] MEDS: HEPARIN SODIUM,PORCINE 5,000 UNITS/ML VIAL SQ SCH ×3 (08:25→23:22)
[2022-12-28 08:48] VITALS: BP 123/73; PULSE 64; RESP 18; TEMP 98.1
[2022-12-28] MEDS: RINGERS SOLUTION,LACTATED 1,000 ML IV SCH (12:44)
[2022-12-28] MEDS: LEVOFLOXACIN 750 MG/D5% WATER 150 ML IV SCH (16:40)
[2022-12-28 16:52] VITALS: BP 119/69; PULSE 65; RESP 18; TEMP 98.1
[2022-12-28 19:51] VITALS: BP 128/69; PULSE 67; RESP 20; TEMP 98.1
[2022-12-29 03:20] VITALS: BP 131/73; PULSE 60; RESP 20; TEMP 97.7
[2022-12-29] MEDS: RINGERS SOLUTION,LACTATED 1,000 ML IV SCH (03:51)
[2022-12-29 08:10] VITALS: BP 127/69; PULSE 72; RESP 19; TEMP 98.4
[2022-12-29] MEDS: DOCUSATE SODIUM 100 MG CAPSULE PO SCH ×2 (08:29→20:21)
[2022-12-29] MEDS: DiphenhydrAMINE HCL 25 MG CAPSULE PO SCH ×2 (08:30→20:21)
[2022-12-29] MEDS: HEPARIN SODIUM,PORCINE 5,000 UNITS/ML VIAL SQ SCH ×3 (08:30→23:08)
[2022-12-29] MEDS: FAMOTIDINE 20 MG TABLET PO SCH (08:30)
[2022-12-29] MEDS: PredniSONE 20 MG TABLET PO SCH (08:30)
[2022-12-29] MEDS ORDERED: SODIUM CHLORIDE 0.9% 250 ML IV ONE (14:28)
[2022-12-29] MEDS: LEVOFLOXACIN 750 MG/D5% WATER 150 ML IV SCH (14:41)
[2022-12-29 16:57] VITALS: BP 138/70; PULSE 60; RESP 19; TEMP 97.9
[2022-12-29 19:45] VITALS: BP 120/72; PULSE 64; RESP 16; TEMP 98.5
[2022-12-30 04:15] VITALS: BP 118/68; PULSE 61; RESP 16; TEMP 98.2
[2022-12-30] MEDS: DiphenhydrAMINE HCL 25 MG CAPSULE PO SCH ×2 (08:30→20:24)
[2022-12-30] MEDS: FAMOTIDINE 20 MG TABLET PO SCH (08:30)
[2022-12-30] MEDS: PredniSONE 20 MG TABLET PO SCH (08:30)
[2022-12-30] MEDS: HEPARIN SODIUM,PORCINE 5,000 UNITS/ML VIAL SQ SCH ×2 (08:30→17:12)
[2022-12-30] MEDS: DOCUSATE SODIUM 100 MG CAPSULE PO SCH ×2 (08:30→20:25)
[2022-12-30 09:45] VITALS: BP 150/80; PULSE 62; RESP 18; TEMP 98.8
[2022-12-30] MEDS: LEVOFLOXACIN 750 MG/D5% WATER 150 ML IV SCH (17:11)
[2022-12-30] MEDS ORDERED: SODIUM CHLORIDE 0.9% 100 ML ONE (17:16)
[2022-12-30] MEDS ORDERED: IOHEXOL 350 MG/ML 100 ML VIAL ONE (17:16)
[2022-12-30 18:18] VITALS: BP 120/67; PULSE 61; RESP 20; TEMP 98.2
[2022-12-30 19:30] VITALS: BP 124/73; PULSE 69; RESP 18; TEMP 98.2
[2022-12-31] MEDS: HEPARIN SODIUM,PORCINE 5,000 UNITS/ML VIAL SQ SCH ×4 (00:04→23:39)
[2022-12-31 04:55] VITALS: BP 129/78; PULSE 61; RESP 20; TEMP 98.3
[2022-12-31] MEDS: DiphenhydrAMINE HCL 25 MG CAPSULE PO SCH ×2 (08:16→20:42)
[2022-12-31] MEDS: FAMOTIDINE 20 MG TABLET PO SCH (08:16)
[2022-12-31] MEDS: DOCUSATE SODIUM 100 MG CAPSULE PO SCH ×2 (08:19→20:41)
[2022-12-31] MEDS: PredniSONE 20 MG TABLET PO SCH (08:19)
[2022-12-31 08:31] VITALS: BP 142/81; PULSE 63; RESP 19; TEMP 98.8
[2022-12-31 10:46] LABS: BASOPHILS % (AUTO) 0.6 % (0.0-2.0); EOSINOPHILS % (AUTO) 0.4 % (1.0-6.0); HEMATOCRIT 29.9 % (41-53); HEMOGLOBIN 9.8 g/dL (13.5-17.5); LYMPHOCYTES # (AUTO) 2.9 K/uL (1.0-4.8); LYMPHOCYTES % (AUTO) 16.1 % (22.0-44.0); MEAN CORPUSCULAR HEMOGLOBIN 28.8 pg (26.0-34.0); MEAN CORPUSCULAR HGB CONC 32.9 G/dL (31.0-37.0); MEAN CORPUSCULAR VOLUME 88 fL (80-100); MONOCYTES # (AUTO) 1.2 K/uL (0.1-1.0); MONOCYTES % (AUTO) 6.9 % (2.0-9.0); NEUTROPHILS # (AUTO) 13.7 K/uL (1.8-7.7); RED BLOOD CELL COUNT(AUTO) 3.41 MIL/uL (4.50-5.90); RED CELL DISTRIBUTION WIDTH 15.9 % (11.5-14.5)
[2022-12-31 10:49] LABS: PLATELET COUNT (AUTO) 750 K/uL (150-450)
[2022-12-31 11:00] LABS: CALCIUM, TOTAL 8.8 mg/dL (8.8-10.5); CARBON DIOXIDE 25 mmol/L (22-29); CHLORIDE 100 mmol/L (98-107); CREATININE 0.98 mg/dL (0.60-1.30); GLOMERULAR FILTR. RATE CALC > 60 mL/min (>60); GLUCOSE,RANDOM 131 mg/dL (70-110); POTASSIUM 3.3 mmol/L (3.5-5.1); UREA NITROGEN, BLOOD 18 mg/dL (7-18)
[2022-12-31 11:03] LABS: ANION GAP 10 mmol/L (8-16); SODIUM SERUM 135 mmol/L (136-145)
[2022-12-31] MEDS ORDERED: POTASSIUM CHLORIDE 20 MEQ ER TABLET PO ONE (13:00)
[2022-12-31] MEDS: LEVOFLOXACIN 750 MG/D5% WATER 150 ML IV SCH (16:17)
[2022-12-31] MEDS: MetroNIDAZOLE 500 MG TABLET PO SCH ×2 (16:17→23:39)
[2022-12-31] MEDS ORDERED: SODIUM CHLORIDE 0.9% 250 ML IV ONE (16:26)
[2022-12-31 16:45] VITALS: BP 113/68; PULSE 67; RESP 19; TEMP 98.2
[2022-12-31 19:55] VITALS: BP 127/77; PULSE 64; RESP 18; TEMP 97.7
[2023-01-01 04:16] VITALS: BP 134/77; PULSE 59; RESP 20; TEMP 98.3
[2023-01-01] MEDS: MetroNIDAZOLE 500 MG TABLET PO SCH (08:44)
[2023-01-01] MEDS: DiphenhydrAMINE HCL 25 MG CAPSULE PO SCH (08:44)
[2023-01-01] MEDS: FAMOTIDINE 20 MG TABLET PO SCH (08:44)
[2023-01-01] MEDS: DOCUSATE SODIUM 100 MG CAPSULE PO SCH (08:44)
[2023-01-01] MEDS: HEPARIN SODIUM,PORCINE 5,000 UNITS/ML VIAL SQ SCH (08:45)
[2023-01-01 08:59] VITALS: BP 119/75; PULSE 78; RESP 20; TEMP 98
[2023-01-01] MEDS ORDERED: PredniSONE 20 MG TABLET PO SCH (09:00)
[2023-01-01] MEDS ORDERED: LEVO750T68 PO (11:13)
[2023-01-01] MEDS ORDERED: METR500 PO (11:13)
[2023-01-01 12:31] LABS: BASOPHILS % (AUTO) 0.2 % (0.0-2.0); EOSINOPHILS % (AUTO) 0.3 % (1.0-6.0); HEMATOCRIT 34.6 % (41-53); HEMOGLOBIN 11.4 g/dL (13.5-17.5); LYMPHOCYTES # (AUTO) 2.9 K/uL (1.0-4.8); LYMPHOCYTES % (AUTO) 12.4 % (22.0-44.0); MEAN CORPUSCULAR HEMOGLOBIN 29.1 pg (26.0-34.0); MEAN CORPUSCULAR HGB CONC 32.9 G/dL (31.0-37.0); MEAN CORPUSCULAR VOLUME 88 fL (80-100); MONOCYTES # (AUTO) 1.2 K/uL (0.1-1.0); NEUTROPHILS # (AUTO) 19.2 K/uL (1.8-7.7); NEUTROPHILS % (AUTO) 82.1 % (40.0-70.0); RED BLOOD CELL COUNT(AUTO) 3.92 MIL/uL (4.50-5.90); RED CELL DISTRIBUTION WIDTH 15.9 % (11.5-14.5); WHITE BLOOD COUNT (AUTO) 23.4 K/uL (4.5-11.0)
[2023-01-01 12:42] LABS: PLATELET COUNT (AUTO) 984 K/uL (150-450)
== END 2023-01-01 12:15 | disposition home or self-care (01) | DRG 720 ==
LOC: EMS 10:25 → 5S 21:22 → 6N 12-21 15:00
PROVIDERS: ADMIT Internal Medicine; ATTEND Internal Medicine
PROC: 0FB13ZX Excision of Right Lobe Liver, Percutaneous Approach, Diagnostic (ICD-10-PCS; principal; 2022-12-26)
DX: A41.9 Sepsis, unspecified organism (principal); N17.0 Acute kidney failure with tubular necrosis; E44.0 Moderate protein-calorie malnutrition; R16.0 Hepatomegaly, not elsewhere classified; E87.1 Hypo-osmolality and hyponatremia; K76.9 Liver disease, unspecified; D64.9 Anemia, unspecified; D75.839 Thrombocytosis, unspecified; I10 Essential (primary) hypertension; E86.0 Dehydration; R21 Rash and other nonspecific skin eruption; Z20.822 Contact with and (suspected) exposure to COVID-19; E78.00 Pure hypercholesterolemia, unspecified; N40.2 Nodular prostate without lower urinary tract symptoms; K29.70 Gastritis, unspecified, without bleeding; Z87.11 Personal history of peptic ulcer disease; Z68.25 Body mass index [BMI] 25.0-25.9, adult; Z88.8 Allergy status to other drugs, medicaments and biological substances; Z79.899 Other long term (current) drug therapy; Z79.82 Long term (current) use of aspirin
CPT/HCPCS: 71045; 74176; 74177; 74181; 74182; 76937; 77012; 80048; 80053; 81003; 82105; 82271; 82977; 83605; 83690; 84132; 84145; 84153; 84484; 85025; 85610; 85651; 87040; 87070; 87075; 87804; 88305; 88341; 88342; 93005; 99285; J1644; J1956; J2001; J2250; J2270; J2310; J2543; J3010; J3490; J7030; J7050; J7060; J7120; Q9967; 36415-L1; 36415-TC